=== PATIENT | female | born 1990 | race Caucasian/White ===

== ENCOUNTER 2018-07-19 06:59 | Inpatient (IN) | payer BC ==
[2018-07-19] MEDS ORDERED: Misoprostol 25 MCG (1/4 of 100 MCG) Tab PO ONE (07:51)
[2018-07-19] MEDS ORDERED: Sodium Chloride 0.9% 10 ML Syringe FLUSH PRN (09:57)
[2018-07-19] MEDS ORDERED: Lactated Ringers 1,000 ML IV ONE (12:38)
[2018-07-19] MEDS ORDERED: Lactated Ringers 1,000 ML IV SCH (12:45)
--- NOTE | 2018-07-19 16:50 | PCM.SN ---
- Free Text/Narrative Note: ANESTHESIA OB SERVICE Date: 07/19/2018 Time: 1251 to 1545 Surgeon and Patient requests a Labor Epidural/ Intrathecal for Labor Pain. H&P: Please see anesthesia's blue sheet for the anesthesia workup. It should be noted that this patient has Scoliosis. She has had two other deliveries in which the first delivery the epidural placement was OK, the second delivery the placement failed after numerous times and an Intrathecal narcotic was placed. she has a very visible curve to the right about 3-4 finger breaths from midline. Risks and Benefits discussed with her and her including PDPH, site infection, and epidural failure / unable to place. They both agreed to proceed with the epidural v/s an Intrathecal. IV fluids are infusing and for monitors, NIBP, HR and SpO2 on. First Attempt: She was placed in a sitting position and using aseptic technique , her lumbar area was prepped with Betadine X 3 swabs and allowed to dry. Sterile drapes applied and the L2-3 interspace was localized with 5 ml's of 1% Lidocaine. This space was 3 finger breath's off of midline. Attempts X 3 with (+) KASIE and no parestheia's / CSF. I was unable to pass the epidural catheter more than 2 cm's. We discussed this and she wishes another attempt. No apparent complications noted except she bleeds easily. Second Attempt: Again, she was in the sitting positions and the same area prep and draping was done aseptically. This time I localized the L1-2 space with felt closer to midline with 5 ml's of 1% Lidocaine plain. After 2 more attempts , I had again a (+) KASIE without CSF/Blood at the 8 cm neha. I dilated the space with 5 ml's of normal saline sterile in which she stated she could feel the pressure. I easily passed the Perifix FX Springwound Epidural Catheter 19 G Open Tip to the depth of 13 cm to the skin. I then administered a test dose of 4 ml's 1.5% Lidocaine with Epi 1/200,000 without any complications or patient complaints. The catheter was then secured with an Opsite and tape. I then gave 15 ml's of .2% Naropin in divided doses [negative aspiration] with apparent decrease in contraction pain and great temperature change on the right thigh and not so much on the left. This was the same under her breasts. Unfortunately the pain was still too intense even with another 5 ml's of .2% Naropin. She and I discussed the Intrathecal option which she wished to proceed due to her labor pain. Her did spend 5-10 minutes with her while I got ready for this. Third Attempt: She was placed in the sitting position and her high lumbar/Low thoracic area was prepped with Betadine X 3 swabs. Sterile drapes were applied and using aseptic technique, I localized the L1-2 interspace again with 3 ml's of 1% Lidocaine. Using the 25 G Pencan with an introducer I attempted X 3 with complaints of paresthesia's down her right leg. I would move the needle to the left with the same complaints or would hit bone. I told her that I was unable to placed anything. She had no complaints related to these procedures. The OB RN contacted the physician and updated him on what has happened. Orders were given and IV Nubain for pain could be given. I did contact Aleja Busby for ideas but I had tried all of her suggestions. This patient is currently in the whirlpool tub with some relief. Keon Hicks CRNA, A
[2018-07-19] MEDS ORDERED: Carboprost Tromethamine 250 MCG/1 ML Amp IM ONE ×2 (18:56→19:21)
[2018-07-19] MEDS ORDERED: Methylergonovine 0.2 MG/1 ML Amp IM STA (19:50)
[2018-07-19] MEDS ORDERED: Misoprostol 100 MCG Tab RECTAL ONE (20:00)
[2018-07-19] MEDS ORDERED: LORazepam 2 MG/ML SDV IVPUSH STA (20:43)
[2018-07-19] MEDS ORDERED: Ibuprofen 600 MG Tab PO SCH (21:00)
[2018-07-19] MEDS ORDERED: Ropivacaine 0.2% 2MG/ML 200 ML Bag IV ONE (21:32)
[2018-07-19 21:49] VITALS: BP 115/80
--- NOTE | 2018-07-20 07:53 | DEL ---
DATE OF DELIVERY: 07/19/2018 HISTORY OF PRESENT ILLNESS: Jacinda Pena is a 28-year-old, 3, para 3 female, 40 weeks and 6 days' gestation, adequate due date, admitted for induction of labor. She has had an uncomplicated with satisfactory maternal and wellbeing. Risks and benefits discussed. PHYSICAL EXAMINATION: VITAL SIGNS: Stable. CHEST: Clear in all lung skaggs. HEART: Regular. ABDOMEN: Benign. Term gravid uterus. Initial exam reveals she is about 2 to 3 cm dilated, midposition, slightly posterior, -2 station. Elected to proceed with Cytotec for induction of labor. 25 mg was given per vagina. Uterine activity became active, wellbeing was satisfactory. Re-examination, 3 cm, -1 station, vertex presentation. Amniotomy was performed. There was clear unremarkable amniotic fluid. Labor progressed well throughout the day. Attempts for regional anesthesia were unsuccessful, either epidural or intrathecal. Analgesia was comfort measures, tub, and she went to complete. When complete, she was asked assist with delivery. Over the course of 4 good quality pushes, delivered in SHIRA presentation without episiotomy. No shoulder dystocia was present. Mouth and oropharynx were suctioned, a little bit of a nuchal cord, delivered without incident. Birthweight 9 pounds 12 ounces, score 9 and 9. Adequate time for cord was given, double clamped, cut by dad in attendance. Cord blood was obtained, 3-cord vessels identified. There was spontaneous placental separation, with 3-vessel cord. She was given intramuscular Pitocin and IV Pitocin. The perineum was inspected, second-degree tear, repaired in simple fashion. Intravaginal mucosa unremarkable. No perineal tears. Blood loss was 150 mL. ASSESSMENT: 1. Term intrauterine . 2. Induction, Cytotec. Amniotomy. 3. Vaginal delivery. Small second-degree tear repaired, 9 pounds 12 ounce male , score 9 and 9. 4. Nursing planned nutrition. PLAN: Routine course. We will watch closely for any uterine atony. Laboratory studies as appropriate. /[id number] AMRITA/BONI
--- NOTE | 2018-07-20 08:09 | DISCH ---
DISCHARGE DATE: 07/19/2018 TRANSFER SUMMARY Jacinda Pena is a 28-year-old 3 mom, had a baby earlier today. There were no untoward affects. Placenta was intact. Intramuscular Pitocin was given, and bleeding was very moderated. About an hour and a half later, she began with significant free flow clots and a significant quantity of bleeding. Tone was suspect. Intravenous Pitocin was continued, 2 doses of Hemabate 0.25 mg were given, and a dose of Methergine 0.2 mg, with intermittent improvement in tone and quality. Persistent moderate flow. Right angle exam reveals cervix to be the nonsource of bleeding. No obvious cervical tears. Bleeding continued. Intravenous fluids and Pitocin were continued. The patient remained relatively asymptomatic, except for tachycardia. Pressures remained satisfactory. Tachycardia 120 to 160. Persistent oozing was noted in spite of intervention. Cytotec 8 grams was given per rectum, and moderate flow continue. A packing was placed. Due to suspicion for an intrauterine process, may be in need of D and C. Urgent transfer was requested, required, and provided and sent forward to [facility]. At the time of discharge, she was stable, tachycardic, but asymptomatic. Flow had moderated. The packing was in place. Transfer went uneventfully. /[id number] AMRITA/BONI
== END 2018-07-19 21:33 | DRG 542 ==
LOC: FB.OB 06:59 → OBSVTOIN 09:57
PROVIDERS: ADMIT Family Medicine; ATTEND Family Medicine
PROC: 10E0XZZ Delivery of Products of Conception, External Approach (ICD-10-PCS; principal; 2018-07-19)
PROC: 3E0P7VZ Introduction of Hormone into Female Reproductive, Via Natural or Artificial Opening (ICD-10-PCS; 2018-07-19)
PROC: 3E033VJ Introduction of Other Hormone into Peripheral Vein, Percutaneous Approach (ICD-10-PCS; 2018-07-19)
PROC: 10907ZC Drainage of Amniotic Fluid, Therapeutic from Products of Conception, Via Natural or Artificial Opening (ICD-10-PCS; 2018-07-19)
PROC: 0KQM0ZZ Repair Perineum Muscle, Open Approach (ICD-10-PCS; 2018-07-19)
PROC: 6A550ZT Pheresis of Cord Blood Stem Cells, Single (ICD-10-PCS; 2018-07-19)
PROC: 00JU3ZZ Inspection of Spinal Canal, Percutaneous Approach (ICD-10-PCS; 2018-07-19)
PROC: 00JU3ZZ Inspection of Spinal Canal, Percutaneous Approach (ICD-10-PCS; 2018-07-19)
PROC: 00JU3ZZ Inspection of Spinal Canal, Percutaneous Approach (ICD-10-PCS; 2018-07-19)
PROC: 0W3R7ZZ Control Bleeding in Genitourinary Tract, Via Natural or Artificial Opening (ICD-10-PCS; 2018-07-19)
DX: O69.81X0 Labor and delivery complicated by cord around neck, without compression, not applicable or unspecified (principal); O70.1 Second degree perineal laceration during delivery; O99.89 Other specified diseases and conditions complicating pregnancy, childbirth and the puerperium; M41.9 Scoliosis, unspecified; Z3A.40 40 weeks gestation of pregnancy; Z37.0 Single live birth; O72.1 Other immediate postpartum hemorrhage
CPT/HCPCS: 36415; 59409; 85025; 85610; 85730; A9270-GY; J2060; J2210; J2590; J2795; J7120